=== PATIENT | male | born 1945 | race Two or more races ===

== ENCOUNTER 2016-10-19 08:48 | Outpatient (CLI) | payer MEDICARE, OTHER ==
[~2016-10-19 08:48] MED LIST: AMLO5TAB2 PO; ASPI-605 PO; ATOR40TA PO; BENA20TA2 PO; DOCU-25 PO; GLIP5TAB13 PO; HYDR-552 PO; HYDR25TA4 PO; METF10002 PO; SULF1TAB48 PO; TERA5CAP4 PO
== END 2016-10-19 23:59 | disposition home or self-care (01) ==
LOC: WOU 08:48
PROVIDERS: ATTEND Podiatrist Foot & Ankle Surgery
DX: Z51.89 Encounter for other specified aftercare (principal); E11.42 Type 2 diabetes mellitus with diabetic polyneuropathy; B35.1 Tinea unguium; L84 Corns and callosities; L60.3 Nail dystrophy; I10 Essential (primary) hypertension; E78.5 Hyperlipidemia, unspecified
CPT/HCPCS: G0463

== ENCOUNTER 2016-12-14 08:49 | Outpatient (CLI) | payer MEDICARE, OTHER | END 2016-12-14 23:59 | disposition home or self-care (01) | LOC: WOU 08:49 | PROVIDERS: ATTEND Podiatrist Foot & Ankle Surgery | DX: E11.42 Type 2 diabetes mellitus with diabetic polyneuropathy (principal); L84 Corns and callosities; E78.5 Hyperlipidemia, unspecified; I10 Essential (primary) hypertension; I83.90 Asymptomatic varicose veins of unspecified lower extremity; B35.1 Tinea unguium | CPT/HCPCS: A6402; G0463 ==

== ENCOUNTER 2017-02-15 09:22 | Outpatient (CLI) | payer MEDICARE, OTHER | END 2017-02-15 23:59 | disposition home or self-care (01) | LOC: WOU 09:22 | PROVIDERS: ATTEND Podiatrist Foot & Ankle Surgery | DX: L85.9 Epidermal thickening, unspecified (principal); E11.42 Type 2 diabetes mellitus with diabetic polyneuropathy; R60.0 Localized edema; B35.1 Tinea unguium; I83.899 Varicose veins of unspecified lower extremity with other complications; L60.3 Nail dystrophy; E78.5 Hyperlipidemia, unspecified; I10 Essential (primary) hypertension | CPT/HCPCS: G0463 ==

== ENCOUNTER 2017-04-23 08:05 | Outpatient (CLI) | payer MEDICARE, OTHER | END 2017-04-23 23:59 | disposition home or self-care (01) | LOC: WOU 08:05 | PROVIDERS: ATTEND Podiatrist Foot & Ankle Surgery | DX: B35.1 Tinea unguium (principal); L84 Corns and callosities; E11.42 Type 2 diabetes mellitus with diabetic polyneuropathy; M20.42 Other hammer toe(s) (acquired), left foot; M20.41 Other hammer toe(s) (acquired), right foot | CPT/HCPCS: G0463 ==

== ENCOUNTER 2017-06-25 09:51 | Outpatient (CLI) | payer MEDICARE, OTHER | END 2017-06-25 23:59 | disposition home or self-care (01) | LOC: WOU 09:51 | PROVIDERS: ATTEND Podiatrist Foot & Ankle Surgery | DX: Z09 Encounter for follow-up examination after completed treatment for conditions other than malignant neoplasm (principal); E11.42 Type 2 diabetes mellitus with diabetic polyneuropathy; L60.3 Nail dystrophy; L84 Corns and callosities; I83.90 Asymptomatic varicose veins of unspecified lower extremity; M21.241 Flexion deformity, right finger joints | CPT/HCPCS: A6402; G0463 ==

== ENCOUNTER 2017-08-27 09:30 | Outpatient (CLI) | payer MEDICARE, OTHER | END 2017-08-27 23:59 | disposition home or self-care (01) | LOC: WOU 09:30 | PROVIDERS: ATTEND Podiatrist Foot & Ankle Surgery | DX: B35.1 Tinea unguium (principal); L84 Corns and callosities; E11.42 Type 2 diabetes mellitus with diabetic polyneuropathy; Z96.698 Presence of other orthopedic joint implants; R60.0 Localized edema; I87.2 Venous insufficiency (chronic) (peripheral); L90.9 Atrophic disorder of skin, unspecified; M20.40 Other hammer toe(s) (acquired), unspecified foot | CPT/HCPCS: G0463 ==

== ENCOUNTER 2017-10-29 10:00 | Outpatient (CLI) | payer MEDICARE, OTHER ==
[~2017-10-29 10:00] MED LIST changes: +DOCU-141 PO; -DOCU-25 PO
== END 2017-10-29 23:59 | disposition home or self-care (01) ==
LOC: WOU 10:00
PROVIDERS: ATTEND Podiatrist Foot & Ankle Surgery
DX: B35.1 Tinea unguium (principal); E11.51 Type 2 diabetes mellitus with diabetic peripheral angiopathy without gangrene; B35.3 Tinea pedis; E11.42 Type 2 diabetes mellitus with diabetic polyneuropathy; L84 Corns and callosities; R60.0 Localized edema; I83.92 Asymptomatic varicose veins of left lower extremity
CPT/HCPCS: G0463

== ENCOUNTER 2017-12-24 09:55 | Outpatient (CLI) | payer MEDICARE, OTHER | END 2017-12-24 23:59 | disposition home or self-care (01) | LOC: WOU 09:55 | PROVIDERS: ATTEND Podiatrist Foot & Ankle Surgery | DX: B35.1 Tinea unguium (principal); L84 Corns and callosities; L60.2 Onychogryphosis; E11.42 Type 2 diabetes mellitus with diabetic polyneuropathy; M20.20 Hallux rigidus, unspecified foot; I83.892 Varicose veins of left lower extremity with other complications | CPT/HCPCS: G0463 ==

== ENCOUNTER 2018-03-25 08:45 | Outpatient (CLI) | payer MEDICARE, OTHER ==
[~2018-03-25 08:45] MED LIST changes: -AMLO5TAB2 PO; +AMLO5TAB7 PO; -BENA20TA2 PO; +BENA20TA9 PO; +METF-442 PO; -METF10002 PO
== END 2018-03-25 23:59 | disposition home or self-care (01) ==
LOC: WOU 08:45
PROVIDERS: ATTEND Podiatrist Foot & Ankle Surgery
DX: B35.1 Tinea unguium (principal); E11.42 Type 2 diabetes mellitus with diabetic polyneuropathy; I87.8 Other specified disorders of veins; L84 Corns and callosities; R60.0 Localized edema
CPT/HCPCS: G0463; Z7610

== ENCOUNTER 2018-05-27 10:00 | Outpatient (CLI) | payer MEDICARE, OTHER ==
[~2018-05-27 10:00] MED LIST changes: +AMLO5TAB2 PO; -AMLO5TAB7 PO; -METF-442 PO; +METF10004 PO
== END 2018-05-27 23:59 | disposition home or self-care (01) ==
LOC: WOU 10:00
PROVIDERS: ATTEND Podiatrist Foot & Ankle Surgery
DX: E11.42 Type 2 diabetes mellitus with diabetic polyneuropathy (principal); L84 Corns and callosities; B35.1 Tinea unguium
CPT/HCPCS: G0463; Z7610

== ENCOUNTER 2018-10-14 09:21 | Outpatient (CLI) | payer MEDICARE, OTHER ==
[~2018-10-14 09:21] MED LIST changes: -AMLO5TAB2 PO; +AMLO5TAB9 PO; +HYDR-4384 PO; -HYDR-552 PO; +METF-442 PO; -METF10004 PO
== END 2018-10-14 23:59 | disposition home or self-care (01) ==
LOC: WOU 09:21
PROVIDERS: ATTEND Podiatrist Foot & Ankle Surgery
DX: L84 Corns and callosities (principal); B35.1 Tinea unguium; E11.42 Type 2 diabetes mellitus with diabetic polyneuropathy; Z86.31 Personal history of diabetic foot ulcer; R60.9 Edema, unspecified; I83.90 Asymptomatic varicose veins of unspecified lower extremity
CPT/HCPCS: A6402; G0463; Z7610

== ENCOUNTER 2018-12-12 09:30 | Outpatient (CLI) | payer MEDICARE, OTHER | END 2018-12-12 23:59 | disposition home or self-care (01) | LOC: WOU 09:30 | PROVIDERS: ATTEND Podiatrist Foot & Ankle Surgery | DX: E11.42 Type 2 diabetes mellitus with diabetic polyneuropathy (principal); L84 Corns and callosities; B35.1 Tinea unguium; Z86.31 Personal history of diabetic foot ulcer; Z79.84 Long term (current) use of oral hypoglycemic drugs | CPT/HCPCS: G0463 ==

== ENCOUNTER 2019-02-17 09:30 | Outpatient (CLI) | payer MEDICARE, OTHER | END 2019-02-17 23:59 | disposition home or self-care (01) | LOC: WOU 09:30 | PROVIDERS: ATTEND Podiatrist Foot & Ankle Surgery | DX: Z09 Encounter for follow-up examination after completed treatment for conditions other than malignant neoplasm (principal); B35.1 Tinea unguium; L84 Corns and callosities; E11.42 Type 2 diabetes mellitus with diabetic polyneuropathy; Z86.31 Personal history of diabetic foot ulcer; L90.9 Atrophic disorder of skin, unspecified; Z79.84 Long term (current) use of oral hypoglycemic drugs | CPT/HCPCS: G0463 ==

== ENCOUNTER 2019-04-24 09:55 | Outpatient (CLI) | payer MEDICARE, OTHER | END 2019-04-24 23:59 | disposition home or self-care (01) | LOC: WOU 09:55 | PROVIDERS: ATTEND Podiatrist Foot & Ankle Surgery | DX: B35.1 Tinea unguium (principal); L60.3 Nail dystrophy; L84 Corns and callosities; I83.892 Varicose veins of left lower extremity with other complications; M20.41 Other hammer toe(s) (acquired), right foot; E11.42 Type 2 diabetes mellitus with diabetic polyneuropathy | CPT/HCPCS: G0463 ==